=== PATIENT | male | born 1945 | race Caucasian/White ===

== ENCOUNTER 2017-03-23 14:30 | Inpatient (IN) | payer OTHER, MEDICARE ==
[2017-05-13] MEDS ORDERED: TRANEXAMIC ACID 3,000 MG in NS 50 ML IRR ONE (06:00)
[2017-05-13] MEDS ORDERED: ROPIVACAINE 0.2% 80 MG, EPINEPHrine 0.2 MG, KETOROLAC TROMETHAMINE 30 MG in BAG 0 ML IU ONE (06:00)
[2017-05-13] MEDS ORDERED: TRANEXAMIC ACID 3,000 MG/50 ML BAG IRR ONE (06:41)
[2017-05-13] MEDS ORDERED: ceFAZolin 2 GM/SWFI 2 GM/20 ML SYR IVP ONE (06:45)
[2017-05-13] MEDS ORDERED: ACETAMINOPHEN 325 MG TAB PO ONE (06:45)
[2017-05-13] MEDS ORDERED: FAMOTIDINE 20 MG TAB PO ONE (06:45)
[2017-05-13] MEDS ORDERED: DEXAMETHASONE 4 MG/ML VIAL IVP ONE (06:45)
[2017-05-13] MEDS ORDERED: LR 1,000 ML IV ONE (06:46)
[2017-05-13] MEDS ORDERED: LIDOCAINE 1% 2 ML INJ ID PRN (06:46)
--- NOTE | 2017-05-13 07:14 | PDHPUP ---
History & Physical Update H&P update statement: This history and physical update is based on an assessment of the patient which was completed after admission or registration (within 24 hours), but prior to the surgery/procedure. H&P update: H&P reviewed & patient examined, no change in patient's condition since H&P completed
--- NOTE | 2017-05-13 07:37 | PDANEPAE ---
ANE History of Present Illness Right LOW ANE Past Medical History - Cardiovascular History Hx Hypertension: No Hx Arrhythmias: No Hx Chest Pain: No Hx Coronary Artery / Peripheral Vascular Disease: No Hx CHF / Valvular Disease: No Hx Palpitations: No Cardiovascular History Comment: BP RUNS LOW - Pulmonary History Hx COPD: No Hx Asthma/Reactive Airway Disease: No Hx Recent Upper Respiratory Infection: No Hx Oxygen in Use at Home: No Hx Sleep Apnea: No Sleep Apnea Screening Result - Last Documented: Negative - Neurologic History Hx Cerebrovascular Accident: No Hx Seizures: No Hx Dementia: No - Endocrine History Hx Diabetes: No Hypothyroid: No Hyperthyroid: No - Renal History Hx Renal Disorders: No Renal History Comment: BLADDER MUSCLES WEAK - Liver History Hx Hepatic Disorders: No - Neurological & Psychiatric Hx Hx Neurological and Psychiatric Disorders: No - Cancer History Hx Cancer: No - Congenital Disorder History Hx Congenital Disorders: No - GI History GERD: no Hx Gastrointestinal Disorders: No - Other Health History Other Health History: OCCAS HEAT RASH/FUNGUS L FOOT - Chronic Pain History Chronic Pain: Yes (R HIP) - Surgical History Prior Surgeries: LUMBAR FUSION 2015. PROSTATE SURG (STENT) ANE Review of Systems Review of Systems: - Exercise capacity METS (RN): 5 METS ANE Patient History - Allergies Allergies/Adverse Reactions: No Known Allergies Allergy (Unverified 04/02/14 18:07) - Home Medications Home Medications: Carboxymethylcellulose 1% [Refresh Celluvisc (*)] 1 drop EACHEYE DAILY PRN 03/29 [Last Taken 05/11/17] Cholecalciferol Vit D3 [Vitamin D3 (*)] 1,000 units PO DAILY 03/29/17 [Last Taken 05/06/17] Glucosamine Sulfate [Glucosamine Sulfate 500 MG (*)] 500 mg PO DAILY 03/29/17 [ Last Taken 05/06/17] Herbals/Supplements -Info Only 1 ea PO DAILY 03/29/17 [Last Taken 05/06/17] Testosterone Micronized 1 gm TP DAILY 03/29/17 [Last Taken 05/06/17] - NPO status NPO Since - Liquids (Date): 05/12/17 NPO Since - Liquids (Time): 23:00 NPO Since - Solids (Date): 05/13/17 NPO Since - Solids (Time): 23:00 - Anes Hx Anes Hx: no prior problems - Smoking Hx Smoking Status: Never smoked Marijuana use: Yes - Alcohol Use Alcohol Use: Occasionally - Family Anes Hx Family Anes Hx: none Family Hx Anesthesia Complications: NEG ANE Labs/Vital Signs - Vital Signs Blood Pressure: 105/70 Heart Rate: 45 Respiratory Rate: 16 O2 Sat (%): 96 Height: 171.45 cm Weight: 70.307 kg ANE Physical Exam - Airway Mallampati Score: Class 1 Mouth exam: normal dental/mouth exam - Pulmonary Pulmonary: no respiratory distress, no rales or rhonchi - Cardiovascular Cardiovascular: regular rate and rhythym, bradycardia ANE Anesthesia Plan Anesthesia Plan: spinal
[2017-05-13] MEDS ORDERED: BUPIVACAINE 0.5% 30 ML SDV ONE (07:46)
[2017-05-13] MEDS ORDERED: fentaNYL 100 MCG/2 ML INJ ONE (07:47)
[2017-05-13] MEDS ORDERED: PROPOFOL 200 MG/20 ML VIAL ONE ×2 (07:47)
[2017-05-13] MEDS ORDERED: LIDOCAINE 2% 5 ML SDV ONE (07:48)
[2017-05-13] MEDS ORDERED: MIDAZOLAM 2 MG/2 ML VIAL IVP ONE (08:04)
[2017-05-13] MEDS ORDERED: ONDANSETRON 4 MG/2 ML VIAL IVP PRN ×2 (09:22→09:40)
[2017-05-13] MEDS ORDERED: fentaNYL 100 MCG/2 ML INJ IVP PRN (09:22)
[2017-05-13] MEDS ORDERED: NALOXONE HCL 0.4 MG/ML INJ IVP PRN (09:22)
[2017-05-13] MEDS ORDERED: OXYCODONE/APAP 5/325 TAB PO PRN (09:22)
[2017-05-13] MEDS ORDERED: HYDROmorphONE/DILAUDID 1 MG/ML INJ IVP PRN (09:22)
[2017-05-13] MEDS ORDERED: POLYETHYLENE GLYCOL 3350 17 GM PKT PO PRN (09:40)
[2017-05-13] MEDS ORDERED: CYCLOBENZAPRINE 10 MG TAB PO PRN (09:40)
[2017-05-13] MEDS ORDERED: oxyCODONE IR 5 MG TAB PO PRN (09:40)
[2017-05-13] MEDS ORDERED: MAGNESIUM HYDROXIDE 30 ML UDCUP PO PRN (09:40)
[2017-05-13] MEDS ORDERED: DIPHENOXYLATE/ATROPINE LOMOTIL 1 TAB PO PRN (09:40)
[2017-05-13] MEDS ORDERED: TEMAZEPAM 15 MG CAP PO PRN (09:40)
[2017-05-13] MEDS ORDERED: METOCLOPRAMIDE 10 MG/2 ML VIAL IVP PRN (09:40)
[2017-05-13] MEDS ORDERED: ONDANSETRON DISINTEGRATING 4 MG TAB PO PRN (09:40)
[2017-05-13] MEDS ORDERED: LACTULOSE 20 GM/30 ML UDCUP PO PRN (09:40)
[2017-05-13] MEDS ORDERED: PROMETHAZINE HCL 25 MG/ML INJ IVP PRN (09:40)
[2017-05-13] MEDS ORDERED: diphenhydrAMINE 25 MG CAP PO PRN (09:40)
[2017-05-13] MEDS ORDERED: PROMETHAZINE HCL 25 MG SUPPR PR PRN (09:40)
[2017-05-13] MEDS ORDERED: BISACODYL 10 MG SUPP PR PRN (09:40)
--- NOTE | 2017-05-13 09:40 | POSTOPPROG ---
Post Op Note Date of Operation: 05/13/17 Surgeon: Ezio Crawford Oyster Buyer: kam crawford Anesthesiologist: dr. malcolm Anesthesia: Spinal Pre-op Diagnosis: right hip OA Post-op Diagnosis: same Indication: right hip pain due to OA that failed conservative measures Procedure: R LOW ant approach Findings: severe hip OA Inf/Abcess present in the surg proc area at time of surgery?: No EBL: 50-100
[2017-05-13] MEDS ORDERED: Carboxymethylcellulose 1% [Refresh Celluvisc (*)] 1 DROP EACHEYE PRN (09:41)
[2017-05-13] MEDS ORDERED: NS 1,000 ML IV SCH (09:45)
[2017-05-13] MEDS: ACETAMINOPHEN 325 MG TAB PO SCH ×3 (12:14→23:49)
[2017-05-13] MEDS: ceFAZolin 2 GM/DEXTROSE 100 ML IV SCH ×2 (16:26→23:49)
[2017-05-13] MEDS: ASPIRIN 325 MG TAB PO SCH (20:42)
[2017-05-13] MEDS: SENNOSIDES/DOCUSATE SODIUM TAB PO SCH (20:42)
[2017-05-13] MEDS: FAMOTIDINE 20 MG TAB PO SCH (20:43)
[2017-05-14] MEDS: ACETAMINOPHEN 325 MG TAB PO SCH (05:03)
[2017-05-14 05:35] LABS: HEMATOCRIT 35.3 % (40.0-51.0); HEMOGLOBIN 11.9 g/dL (13.7-17.5)
[2017-05-14 08:30] VITALS: BP 99/81; PULSE 49; RESP 16; TEMP 98.1; O2SAT 96
[2017-05-14] MEDS: ASPIRIN 325 MG TAB PO SCH (09:06)
[2017-05-14] MEDS: FAMOTIDINE 20 MG TAB PO SCH (09:07)
[2017-05-14] MEDS: SENNOSIDES/DOCUSATE SODIUM TAB PO SCH (09:07)
--- NOTE | 2017-05-14 10:36 | ASMTCMCOM ---
CM Note CM Note Notes: Anticipate pt will have no DC needs. Date Signed: 05/14/2017 10:36 AM Electronically Signed By:Cyndi Batres LCSW
--- NOTE | 2017-05-14 11:12 | GOP ---
[f rep st] OPERATIVE REPORT DATE OF OPERATION: 05/13/2017 SURGEON: Luis A Juarez MD PRINCIPAL GIFTS OFFICER: JOHN Webb ANESTHESIA: Spinal. PREOPERATIVE DIAGNOSIS: Right hip osteoarthritis. POSTOPERATIVE DIAGNOSIS: Right hip osteoarthritis. PROCEDURE PERFORMED: Right total hip arthroplasty with x-ray. FINDINGS: ESTIMATED BLOOD LOSS: 200 cc. INDICATIONS: The patient has progressively worsening arthritis of the hip which has failed medical m anagement. The patient understands the treatment options including continued non-operative care and has selected surgical intervention. The patient has decided to undergo total hip arthroplasty via th e direct anterior approach, understanding the risks of the procedure including, but not limited to, n eurovascular injury, infection, persistent pain, component wear and loosening, deep venous thrombosis , pulmonary embolism, limb length inequality, hip instability (including dislocation), and intra-oper ative fractures. DESCRIPTION OF PROCEDURE: After proper identification of the patient including verification and heydi ing the surgical site, the patient was brought to the operating room and placed in the supine positio n. All bony prominences were well padded. Anesthesia was induced without complication and intraveno us prophylactic antibiotics were administered prior to skin incision. The operative leg was placed in the Trumpf Arch table extension and the well leg in a Yellofin leg ho lder. The patient was prepped and draped in the usual sterile fashion. The C-arm was draped for int ra-operative fluoroscopy to check acetabular position, femoral component position including leg lengt h and femoral offset. Attention was then drawn to surgical exposure of the hip. An incision was made with a #10 Bard Margo r blade starting 3 cm lateral and 3 cm distal to the anterior superior iliac spine measuring 8-10 cm and coursing distally toward the greater trochanter. The skin and subcutaneous tissues were divided sharply down to the fascia manish. The fascia manish was incised in line with the skin incision exposing the underlying tensor fascia manish muscle. The muscle was bluntly elevated from the fascia and the f irst extracapsular Cobra retractor was placed laterally at the junction of the superior femoral neck and greater trochanter. The lateral femoral circumflex vessels were identified, cauterized, and divi ded with the Aquamantys bipolar cautery. The deep investing fascia of the TFL was divided to allow p ruby mobilization of the muscle preventing damage during the retraction. The reflected head of the rectus femoris muscle was elevated off the anterior hip capsule and a medial Cobra retractor was plac ed just proximal to the lesser trochanter. The anterior capsulotomy was made sharply from the superolateral acetabulum to the saddle junction of the superior femoral neck and greater trochanter, then coursing inferomedial towards the lesser troc hanter. The retractors were then placed in the intracapsular position for femoral neck osteotomy. C orresponding to pre-operative templating, the osteotomy was made with the oscillating saw carefully p rotecting the greater trochanter and soft tissues. The femoral head was removed from the acetabulum with a corkscrew and confirmed to be severely arthritic with exposed bone, deformity and osteophytes. Similar findings were confirmed in the acetabulum. The Arch table extension was then placed in 40 degrees external rotation. Attention was then drawn to the acetabular preparation. After placement of the anterior and posterio r Cobra retractors outside the labrum and intracapsular, the circumferential labrum was removed sharp ly. The foveal contents were then removed and hemostasis obtained with cautery. The first reamer selected was sized using the removed femoral head. Reaming began with medialization and then commenced in 2 mm increments at 45 degrees of abduction and 15 degrees of anteversion using fluoroscopic navigation. Reaming ceased 1 mm less than the definitive acetabular component and mignon esponded to the pre-operative templating. The final acetabular component was inserted using fluorosc opy to achieve proper orientation yielding excellent purchase and stability in the acetabulum. The f inal acetabular liner was then placed and its seating confirmed. Attention was then turned to the femur. The Arch table extension was placed in extension and adducti on, delivering the osteotomized femoral neck into the wound. A 2-pronged femoral elevator was placed at the calcar and another at the tip of the greater trochanter. The posterolateral capsule was rele ased with cautery allowing mobilization of the femur lateral and anterior for preparation. The exter nal rotators were visualized and preserved. A curette and rongeur were used to open the starting poi nt for broaching. Serial broaching started with the #0 broach and ended with the broach that exhibit ed excellent fit in the proximal femur. A change in pitch during mallet strikes was accompanied by t he inability to advance the broach any further. The trial reduction was performed and fluoroscopic n avigation was utilized to check limb length. Adjustments were made to equalize limb length according ly. After the final trials were accepted they were removed and the wound was copiously lavaged. The femo ral component was seated to the same depth as the final broach and the femoral head was impacted onto the clean trunnion. The hip was then reduced for the final time and once more fluoroscopy was used to check that limb length equality was achieved. The wound was irrigated and closed in layers, the fascia manish with 2-0 Quill, the subcutaneous tissue with 2-0 Quill, and the skin with Dermabond. Sterile dressings were applied. Final sharps and spon ge counts were accurate. The patient was then transferred to a hospital bed and brought to the [facility] room in stable condition. IMPLANTS: Accolade II size 4 at 127. Acetabular component is a 54 mm Tritanium. The liner is a Trid ent X3, 36 mm. The head is a Biolox Delta 36 mm, -2.5. /[id number]/MODL
--- NOTE | 2017-05-14 11:34 | SOAPPROG ---
SOAP Progress Note Assessment/Plan: Assessment: patient is doing well POD1 s/p R LOW 1) pain management: pain is well controlled on oral pain meds 2) VTE ppx: recommend aspirin daily. cont WILLIAM white and SCDs 3) d/c planning: d/c to home today once patient is released from PT Plan: 05/14/17 11:33 Subjective: Juliano is doing well today, denies SOB, chest pain and N/V Objective: Vital Signs Temp Pulse Resp BP Pulse Ox 36.7 C 49 L 16 99/81 H 96 05/14/17 08:00 05/14/17 08:00 05/14/17 08:00 05/14/17 08:00 05/14/17 08:00 Laboratory Results 05/14/17 04:53 05/13/17 05/14/17 05/15/17 05:59 05:59 05:59 Intake Total 1455 650 Output Total 550 Balance 905 650 RLE: incision dressing is clean and dry, NVI, +pf/df ICD10 Worksheet Patient Problems: Problems Problem Status Onset Primary localized osteoarthritis of right hip Acute
--- NOTE | 2017-05-14 12:12 | GDS ---
[f rep st] DISCHARGE SUMMARY ADMISSION DIAGNOSIS: Right hip osteoarthritis. DISCHARGE DIAGNOSIS: Right hip osteoarthritis. PROCEDURE: Right total hip arthroplasty. VTE PROPHYLAXIS: Aspirin recommended, 3 weeks, daily. BRIEF DESCRIPTION OF HOSPITAL STAY: Patient was admitted for an elective joint arthroplasty. The pa tient tolerated the procedure well and has passed physical therapy. The patient was given appropriat e antibiotic prophylaxis and venous thromboembolism prophylaxis. The patient's pain was well control led on oral pain medication, patient was holding down food, and had urinated. Decision was made to d ischarge the patient. The patient was given post-operative prescriptions pre-operatively. PLAN: Follow up as scheduled, June 02, at 8:45 a.m. /[id number]/MODL
--- NOTE | 2017-05-14 14:17 | ASDISCHSUM ---
Discharge Information Plan Status: Medically Cleared to Leave: Discharge Date:05/14/2017 11:46 AM D/C Disposition: ADT D/C Disposition:Home, Routine, Self-Care Projected Discharge Date:05/14/2017 11:46 AM Transportation at D/C: Discharge Delay Reason: Follow-Up Date:05/14/2017 11:46 AM Discharge Slot: Final Diagnosis: Placement Information Patient Contact Information Contact Name:NATALIA Relationship: Address:[address] City:[place] Alternate Phone: State/Zip Code:[place] [address] Email: Financial Information Financial Class: Primary Plan Desc:MEDICARE INPATIENT Primary Plan Number:[id number] Secondary Plan Desc:[employer]/MDR SUPPLEMENT Secondary Plan Number:[id number] Assessment Information [facility] CM Progress Note CM Note CM Note Notes: Anticipate pt will have no DC needs. Date Signed: 05/14/2017 10:36 AM Electronically Signed By:Cyndi Batres LCSW Intervention Information
--- NOTE | 2017-05-14 17:13 | POSTANESTH ---
Post Anesthetic Evaluation Cardiovascular Status: Normal, Stable Respiratory Status: Normal, Stable Level of Consciousness/Mental Status: Can Participate in Eval Pain Control: Adequate, Prn Tx Ordered Nausea/Vomiting Control: Adequate, Prn Tx Ordered Complications Possibly Related to Anesthesia: None Noted (Seen 05/13/17 Doing well walking)
== END 2017-05-14 11:46 | disposition home or self-care (01) | DRG 470 ==
LOC: F3N 05-13 05:50
PROVIDERS: ADMIT Orthopaedic Surgery; ATTEND Orthopaedic Surgery
PROC: 0SR904Z Replacement of Right Hip Joint with Ceramic on Polyethylene Synthetic Substitute, Open Approach (ICD-10-PCS; principal; 2017-05-13 08:15)
DX: M16.11 Unilateral primary osteoarthritis, right hip (principal); Z98.1 Arthrodesis status
CPT/HCPCS: 97116-GP; 97161-GP; 97165-GO; 97530-GP; G8978-GP-CI; G8979-GP-CI; G8980-GP-CI; G8987-GO-CI; G8989-GO-CH; J0171; J0690; J1100; J1885; J2250; J2704; J2795; J3010

== ENCOUNTER → 2017-11-04 | Outpatient (CLI) | payer OTHER, MEDICARE | LOC: BHFA 09:15 | PROVIDERS: ATTEND Internal Medicine Cardiovascular Disease | DX: I71.9 Aortic aneurysm of unspecified site, without rupture (principal); I05.9 Rheumatic mitral valve disease, unspecified ==

== ENCOUNTER → 2018-06-18 | Outpatient (CLI) | payer OTHER, MEDICARE | LOC: FIMAGING 09:07 | PROVIDERS: ATTEND Thoracic Surgery (Cardiothoracic Vascular Surgery) | DX: I77.89 Other specified disorders of arteries and arterioles (principal) ==

== ENCOUNTER → 2018-06-24 | Outpatient (CLI) | payer OTHER, MEDICARE | LOC: BMCIMAGING 09:22 | PROVIDERS: ATTEND Family Medicine | DX: R06.00 Dyspnea, unspecified (principal); R05 Cough ==